=== PATIENT | male | born 1940 | race Caucasian/White ===

== ENCOUNTER 2018-08-31 17:38 | Emergency (ER) | payer MEDICAID ==
[~2018-08-31] VITALS: Ht 162.6 cm; Wt 100.0 kg
[2018-08-31 17:54] VITALS: BP 177/89
[2018-08-31] MEDS ORDERED: NAPR500T7 PO (18:02)
[2018-08-31] MEDS ORDERED: AZIT200S40 PO (18:02)
[2018-08-31] MEDS ORDERED: D-ME473S8 PO (18:02)
[2018-08-31] MEDS ORDERED: HYDR-2510 PO (18:02)
[2018-08-31] MEDS ORDERED: LOSA100T14 PO (18:02)
== END 2018-08-31 21:45 | disposition left against medical advice (07) ==
LOC: ER 21:32
DX: R42 Dizziness and giddiness (principal); R53.1 Weakness; M25.562 Pain in left knee; Z53.21 Procedure and treatment not carried out due to patient leaving prior to being seen by health care provider

== ENCOUNTER 2020-04-25 11:42 | Emergency (ER) | payer MEDICAID ==
[~2020-04-25] VITALS: Ht 162.6 cm; Wt 77.0 kg
[~2020-04-25 11:42] MED LIST: AZIT200S40 PO; D-ME473S8 PO; HYDR-2510 PO; LOSA100T32 PO; NAPR500T7 PO
[2020-04-25 12:47] LABS: CHLORIDE 106 mEq/L (98-107)
[2020-04-25 12:48] LABS: BASOPHILS % 0.8 % (0.0-2.0); HEMATOCRIT. 41.3 % (42.0-52.0); HEMOGLOBIN. 14.2 g/dL (14.0-18.0); LYMPHOCYTES % 27.3 % (20.0-50.0); MEAN CORPUSCULAR HEMOGLOBIN 31.2 pg (28.0-32.0); MEAN CORPUSCULAR VOLUME 90.9 fL (80.0-94.0); MEAN PLATELET VOLUME 8.7 fl (7.4-10.4); MONOCYTES % 9.8 % (2.0-8.0); NEUTROPHILS % 57.1 % (40.0-76.0); PLATELET 215 x1000/uL (130-400); RED BLOOD CELL COUNT 4.54 mill/uL (4.7-6.1)
[2020-04-25 14:51] VITALS: BP 156/87
== END 2020-04-25 14:56 | disposition home or self-care (01) ==
LOC: ER 11:42
DX: J02.9 Acute pharyngitis, unspecified (principal); G89.29 Other chronic pain; M25.562 Pain in left knee; I10 Essential (primary) hypertension
CPT/HCPCS: 36415; 71045; 80053; 85025; 99284; U0003-CS

== ENCOUNTER 2021-02-21 02:09 | Inpatient (IN) | payer MEDICAID, OTHER ==
[~2021-02-21] VITALS: Ht 165.1 cm; Wt 99.8 kg
[~2021-02-21 02:09] MED LIST changes: -HYDR-2510 PO; +HYDR50TA PO
[2021-02-21] MEDS ORDERED: ASPIRIN 81MG TABLET PO ONE (02:30)
[2021-02-21 02:52] LABS: BASOPHILS % 0.7 % (0.0-2.0); EOSINOPHILS % 8.8 % (0.0-5.0); HEMATOCRIT. 45.2 % (42.0-52.0); HEMOGLOBIN. 15.2 g/dL (14.0-18.0); LYMPHOCYTES % 32.7 % (20.0-50.0); MEAN CORPUSCULAR HEMOGLOBIN 31.7 pg (28.0-32.0); MEAN CORPUSCULAR VOLUME 94.2 fL (80.0-94.0); MEAN PLATELET VOLUME 8.9 fl (7.4-10.4); MONOCYTES % 9.2 % (2.0-8.0); NEUTROPHILS % 48.6 % (40.0-76.0); PLATELET 226 x1000/uL (130-400); RED CELL DISTRIBUTION WIDTH 14.5 % (11.6-14.6)
[2021-02-21 02:59] LABS: CHLORIDE 105 mEq/L (98-107)
[2021-02-21 03:01] LABS: INR 1.1; PROTHROMBIN TIME 11.9 sec (9.6-11.0)
[2021-02-21] MEDS ORDERED: POTASSIUM CHLORIDE 20MEQ TABLET SR PO NR (05:00)
[2021-02-21] MEDS ORDERED: ONDANSETRON HCL 4MG/2ML INJ IV PRN (09:15)
[2021-02-21] MEDS ORDERED: ACETAMINOPHEN 325MG TABLET PO PRN (09:15)
[2021-02-21 11:00] VITALS: BP 148/91
[2021-02-21 12:00] VITALS: BP 144/90
[2021-02-21 12:18] LABS: LDL CHOLESTEROL 99 mg/dL (5-100)
[2021-02-21 12:20] LABS: HDL CHOLESTEROL 57 mg/dL (40-59)
[2021-02-21] MEDS ORDERED: REGADENOSON 0.4 MG/5 ML IV NR (14:15)
[2021-02-21 16:00] VITALS: BP 166/98
[2021-02-21] MEDS: ENOXAPARIN 100MG/ML SYR SUBCUT SCH (16:11)
[2021-02-21] MEDS: CARVEDILOL 3.125 MG TABLET PO SCH ×2 (16:12→23:38)
[2021-02-21 20:00] VITALS: BP 132/82
[2021-02-22] VITALS: BP 134/86
[2021-02-22] MEDS: ENOXAPARIN 100MG/ML SYR SUBCUT SCH (03:09)
[2021-02-22 04:00] VITALS: BP 136/87
[2021-02-22] MEDS ORDERED: REGADENOSON 0.4 MG/5 ML IV ONE (08:57)
[2021-02-22] MEDS ORDERED: FUROSEMIDE 20MG TABLET PO SCH (09:00)
[2021-02-22] MEDS ORDERED: ASPIRIN 81MG TABLET PO SCH (09:00)
[2021-02-22] MEDS: CARVEDILOL 3.125 MG TABLET PO SCH (10:28)
[2021-02-22 12:00] VITALS: BP 157/93
[2021-02-22] MEDS ORDERED: LISI-186 PO (12:57)
[2021-02-22] MEDS ORDERED: COR3 PO (12:57)
[2021-02-22] MEDS ORDERED: ENOXAPARIN 100MG/ML SYR SUBCUT SCH (14:00)
[2021-02-22 16:44] VITALS: BP 145/88
[2021-02-22] MEDS ORDERED: CARVEDILOL 6.25 MG TABLET PO SCH (21:00)
[2021-02-23] MEDS ORDERED: LISINOPRIL 5MG TABLET PO SCH (09:00)
== END 2021-02-22 17:00 | disposition home or self-care (01) | DRG 201 ==
LOC: ER 02:09 → 8WST 04:45 → EDBEDREQSVC 07:24 → EDBEDREQ 08:03 → ENRESERV 08:09
PROVIDERS: ADMIT Internal Medicine; ATTEND Internal Medicine
DX: I48.91 Unspecified atrial fibrillation (principal); I11.0 Hypertensive heart disease with heart failure; I50.43 Acute on chronic combined systolic (congestive) and diastolic (congestive) heart failure; E66.9 Obesity, unspecified; Z20.822 Contact with and (suspected) exposure to COVID-19; G93.49 Other encephalopathy; E87.6 Hypokalemia; F03.90 Unspecified dementia, unspecified severity, without behavioral disturbance, psychotic disturbance, mood disturbance, and anxiety; Z87.440 Personal history of urinary (tract) infections; Z71.3 Dietary counseling and surveillance; Z68.36 Body mass index [BMI] 36.0-36.9, adult
CPT/HCPCS: 36415; 71045; 78452; 80053; 80061; 83880; 84443; 84484; 85025; 87426; 93005; 93017; 93306; 99285; A9500; C1893; J1650; J2785